=== PATIENT | male | born 1950 | race Caucasian/White ===

== ENCOUNTER → 2016-06-30 | Outpatient (REF) | payer MEDICARE ==
[~2016-06-30] MED LIST: ADVI200T PO; ALBU17IN INH; ALEV220T26 PO; CIPR500T19 PO; LEVO112T2 PO; MONT10TA2 PO; OXYC1TAB23 PO; SING10TA32 PO; TYLE325C PO
[2016-06-30 12:24] LABS: MEAN CORPUSCULAR HEMOGLOBIN 27.6 pg (27.0-33.0); MEAN CORPUSCULAR VOLUME 80.9 fl (80.0-96.0); RED CELL DISTRIBUTION WIDTH 12.5 % (11.5-14.5); WHITE BLOOD COUNT 5.8 K/mm3 (4.0-10.0)
[2016-06-30 12:32] LABS: ALBUMIN 3.9 GM/DL (3.2-5.2); ALBUMIN/GLOBULIN RATIO 1.39 (1.00-1.93); ALKALINE PHOSPHATASE 70 U/L (45-117); ALT/SGPT 31 U/L (12-78); ANION GAP 9 MEQ/L (8-16); AST/SGOT 17 U/L (15-37); BILIRUBIN,TOTAL 0.5 MG/DL (0.2-1.0); BLOOD UREA NITROGEN 20 MG/DL (7-18); CALCIUM LEVEL 8.7 MG/DL (8.8-10.2); CARBON DIOXIDE LEVEL 27 MEQ/L (21-32); CHLORIDE LEVEL 102 MEQ/L (98-107); CHOLESTEROL LEVEL 210 MG/DL (<200); GLOMERULAR FILTRATION RATE > 60.0 (>49); GLUCOSE, FASTING 90 MG/DL (80-110); POTASSIUM SERUM 4.1 MEQ/L (3.5-5.1); SODIUM LEVEL 138 MEQ/L (136-145); TOTAL PROTEIN 6.7 GM/DL (6.4-8.2); TRIGLYCERIDES LEVEL 96 MG/DL (<150)
== END ==
LOC: M SFHCPLAZ 09:24
PROVIDERS: ATTEND Internal Medicine
DX: E78.00 Pure hypercholesterolemia, unspecified (principal); E03.9 Hypothyroidism, unspecified

== ENCOUNTER → 2016-07-07 | Outpatient (CLI) | payer MEDICARE | LOC: M SMT 11:45 | PROVIDERS: ATTEND Urology | DX: C61 Malignant neoplasm of prostate (principal) ==

== ENCOUNTER → 2016-08-28 | Outpatient (CLI) | payer MEDICARE | LOC: M SMT 09:58 | PROVIDERS: ATTEND Urology | DX: C61 Malignant neoplasm of prostate (principal) ==

== ENCOUNTER → 2016-10-13 | Outpatient (CLI) | payer MEDICARE | LOC: M SMT 11:01 | PROVIDERS: ATTEND Urology | DX: C61 Malignant neoplasm of prostate (principal) ==

== ENCOUNTER → 2016-10-28 | Outpatient (CLI) | payer MEDICARE | LOC: M ONCR 09:09 | PROVIDERS: ATTEND Radiology Radiation Oncology | DX: C61 Malignant neoplasm of prostate (principal) ==

== ENCOUNTER 2016-10-30 10:29 | Outpatient (RCR) | payer MEDICARE ==
--- NOTE | 2016-10-30 11:01 | RADONC ---
RADIATION ONCOLOGY SIMULATION NOTE: DATE: 10/30/2016 CHART NUMBER: SIMULATION NOTE: Mr. Cunha was taken to the CT scan for CT simulation of his prostate bed field. CT was accomplished without difficulty or discomfort. Radiation treatment planning is underway and radiation treatments will begin subsequently. An immobilization device was created without difficulty or discomfort. It will be used throughout the course of treatment. I was physically present throughout the course of CT simulation.
== END 2016-11-07 ==
LOC: M ONCR 10:29
PROVIDERS: ATTEND Radiology Radiation Oncology
DX: C61 Malignant neoplasm of prostate (principal)

== ENCOUNTER → 2016-10-30 | Outpatient (CLI) | payer MEDICARE ==
[2016-10-30 11:28] LABS: MEAN CORPUSCULAR HEMOGLOBIN 28.8 pg (27.0-33.0); MEAN CORPUSCULAR HGB CONC 34.8 g/dl (32.0-36.5); MEAN CORPUSCULAR VOLUME 82.8 fl (80.0-96.0); RED CELL DISTRIBUTION WIDTH 12.9 % (11.5-14.5); WHITE BLOOD COUNT 6.9 K/mm3 (4.0-10.0)
== END ==
LOC: M RAD 10:21
PROVIDERS: ATTEND Radiology Radiation Oncology
DX: C61 Malignant neoplasm of prostate (principal)

== ENCOUNTER 2016-11-12 10:05 | Outpatient (RCR) | payer MEDICARE ==
--- NOTE | 2016-11-14 10:51 | RADONC ---
RADIATION ONCOLOGY PROGRESS NOTE DATE: 11/12/2016 CHART NUMBER: [id number]. Mr. Cunha underwent his first fraction of 180 centigrade today to his prostate bed. It was tolerated without difficulty or discomfort. REVIEW OF SYSTEMS: The patient's review of systems is noncontributory. Denies nausea, vomiting, fevers, chills, night sweats, diplopia, headaches, anxiety or depression, anorexia, weight loss, visual disturbances, chest pain, urinary or bowel difficulties, bone pain, or neurological problems. PHYSICAL EXAMINATION: The patient's skin clearly shows no evidence of radiation change present since this is his first fraction. The remainder of his physical exam remains unchanged as well. Mr. Cunha has tolerated his first fraction without difficulty and radiation will continue as scheduled.
--- NOTE | 2016-11-17 11:45 | RADONC ---
RADIATION ONCOLOGY PROGRESS NOTE DATE: 11/17/2016 CHART NUMBER: [id number] Mr. Cunha is presently at a dose of 720 cGy to his prostate bed and is tolerating treatments quite well at this point with no complaints related to his radiation therapy. He is having no urinary or bowel difficulties and no bone pain. The patient's review of systems noncontributory. He denies nausea, vomiting, fevers, chills, night sweats, diplopia, headaches, anxiety or depression, anorexia, weight loss, visual disturbances, chest pain, urinary or bowel difficulties, bone pain, or neurological problems. PHYSICAL EXAMINATION: The patient's skin is in good condition with no evidence of radiation change present. There is no moist or dry desquamation. The remainder of his physical exam remains unchanged. Mr. Cunha is tolerating treatments quite well and radiation will continue as scheduled.
--- NOTE | 2016-11-24 10:42 | RADONC ---
RADIATION ONCOLOGY DATE: 11/24/2016 CHART NUMBER: [id number] Mr. Cunha is presently at a dose of 1620 cGy to his prostate bed and is tolerating treatments quite well at this point with no complaints related to his radiation therapy. He is having no urinary or bowel difficulties and no bone pain. REVIEW OF SYSTEMS: The patient's review of systems is otherwise noncontributory. He denies nausea, vomiting, fevers, chills, night sweats, diplopia, headaches, anxiety or depression, anorexia, weight loss, visual disturbances, chest pain, urinary or bowel difficulties, bone pain or neurological problems. PHYSICAL EXAMINATION: The patient's skin is in good condition with no evidence of radiation change present. There is no moist or dry desquamation. The remainder of his physical exam remains unchanged. Mr. Cunha is tolerating treatments quite well and radiation will continue as scheduled.
--- NOTE | 2016-12-01 11:01 | RADONC ---
RADIATION ONCOLOGY PROGRESS NOTE DATE: 12/01/2016 CHART NUMBER: [id number] Mr. Cunha is presently a dose of 2520 cGy to his prostate bed and is tolerating treatments quite well at this point with no significant difficulties related to his radiation therapy other than some urinary frequency and urgency. REVIEW OF SYSTEMS: The patient's review of systems is positive for some urinary frequency but is otherwise noncontributory. He denies nausea, vomiting, fevers, chills, night sweats, diplopia, headaches, anxiety or depression, anorexia, weight loss, visual disturbances, chest pain, urinary or bowel difficulties, bone pain or neurological problems. PHYSICAL EXAMINATION: The patient's skin is in good condition with no evidence of radiation change present. There is no moist or dry desquamation. The remainder of his physical exam remains unchanged. Mr. Cunha is tolerating his treatments quite well and radiation will continue as scheduled.
--- NOTE | 2016-12-08 11:49 | RADONC ---
RADIATION ONCOLOGY PROGRESS NOTE DATE: 12/08/2016 CHART NUMBER: [id number] Mr. Cunha is presently at a dose of 3420 cGy to his prostate bed and is tolerating treatments quite well at this point with no complaints related to his radiation therapy. He has no urinary or bowel difficulties and no bone pain. The patient's review of systems is noncontributory. He denies nausea, vomiting, fevers, chills, night sweats, diplopia, headaches, anxiety or depression, anorexia, weight loss, visual disturbances, chest pain, urinary or bowel difficulties, bone pain, or neurological problems. PHYSICAL EXAMINATION: The patient's skin is in good condition with no evidence of radiation change present. There is no moist or dry desquamation. The remainder of his physical exam remains unchanged. Mr. Cunha is tolerating treatments quite well and radiation will continue as scheduled.
== END 2016-12-08 ==
LOC: M ONCR 10:05
PROVIDERS: ATTEND Radiology Radiation Oncology
DX: C61 Malignant neoplasm of prostate (principal)

== ENCOUNTER 2016-12-09 11:21 | Outpatient (RCR) | payer MEDICARE ==
--- NOTE | 2016-12-15 11:26 | RADONC ---
RADIATION ONCOLOGY PROGRESS NOTE DATE: 12/15/2016 CHART NUMBER: [id number] Mr. Cunha is presently at a dose of 4320 cGy to his prostate bed and is tolerating treatments quite well at this point with no complaints related to his radiation therapy. He is having no significant urinary or bowel difficulties, and no bone pain. REVIEW OF SYSTEMS: The patient's review of systems is noncontributory. He denies nausea, vomiting, fevers, chills, night sweats, diplopia, headaches, anxiety or depression, anorexia, weight loss, visual disturbances, chest pain, urinary or bowel difficulties, bone pain or neurological problems. PHYSICAL EXAMINATION: The patient's skin is in good condition with no evidence of radiation change present. There is no moist or dry desquamation. The remainder of his physical exam remains unchanged. Mr. Cunha is tolerating treatments quite well and radiation will continue as scheduled.
--- NOTE | 2016-12-22 10:51 | RADONC ---
RADIATION ONCOLOGY PROGRESS NOTE DATE: 12/22/2016 CHART NUMBER: [id number] Mr. Cunha is presently at a dose of 5220 centigrade to his prostate and is tolerating treatments quite well at this point with no significant difficulties related to his radiation therapy. He reported that he had some fatigue on Thursday, but overall is feeling better today. He has no significant urinary or bowel difficulties. REVIEW OF SYSTEMS: The patient's review of systems is largely noncontributory. Denies nausea, vomiting, fevers, chills, night sweats, diplopia, headaches, anxiety or depression, anorexia, weight loss, visual disturbances, chest pain, urinary or bowel difficulties, bone pain, or neurological problems. PHYSICAL EXAMINATION: The patient's skin is in good condition with no evidence of moist or dry desquamation. The remainder of his physical exam remains unchanged. Mr. Cunha is tolerating treatments quite well and radiation will continue as scheduled.
--- NOTE | 2016-12-29 12:16 | RADONC ---
RADIATION ONCOLOGY PROGRESS NOTE: DATE: 12/29/2016 CHART NUMBER: [id number]. PROGRESS NOTE: Mr. Cunha is presently at a dose of 6120 cGy to his prostate and is tolerating treatments quite well at this point with no significant difficulties related to his radiation therapy. He has some tenderness of the skin in the irradiated field. REVIEW OF SYSTEMS: The patient's review of systems is positive for some skin tenderness along his upper buttocks but is otherwise noncontributory. Denies nausea, vomiting, fevers, chills, night sweats, diplopia, headaches, anxiety or depression, anorexia, weight loss, visual disturbances, chest pain, urinary or bowel difficulties, bone pain, or neurological problems. PHYSICAL EXAMINATION: The patient's skin overall is in good condition with no evidence of moist or dry desquamation. There is some erythema in the upper buttocks. The remainder of his physical exam remains unchanged. Mr. Cunha is tolerating treatments quite well and radiation will continue as scheduled. Edited: 12/29/2016 1217 [facility]
--- NOTE | 2017-01-02 19:26 | RADONC ---
RADIATION ONCOLOGY TREATMENT SUMMARY DATE: 01/01/2017 CHART NUMBER: [id number] DIAGNOSIS: Prostate cancer. STAGE: IIB, [id number] R-1 ECOG PERFORMANCE STATUS: 0 TREATMENT SUMMARY: Mr. Cunha is a very pleasant 66-year-old white male with the diagnosis of what appears to be a stage IIB, [id number] R-1, moderate to poorly differentiated Aida score 7 (3-4) adenocarcinoma of prostate who presented to us status post radical prostatectomy for consideration of postoperative radiation therapy in an attempt to increase the likelihood of achieving local control. We treated the patient to his prostate bed for a total dose of 6660 cGy delivered in 37 fractions of 180 cGy each over 50 elapsed days from 11/12/2016 through 01/01/2017. The patient's prostate bed was treated on a linear accelerator utilizing an 18 MV photon beam via a 3D conformal technique with anterior posterior left to right lateral umanzor. We initially treated a larger field 4500 cGy subsequently coned down to deliver the remaining 2120 cGy order to maintain the small bowel and other structures within their tolerance limits. Mr. Cunha tolerated his treatments quite well with no difficulties related to his radiation therapy. He was able to eat therapy as prescribed without interruption. The patient is scheduled see me again in 1 month for further followup. He will also continue to be followed by his other physicians as well. cc: MD José Luis Bowen MD
== END 2017-01-08 ==
LOC: M ONCR 11:21
PROVIDERS: ATTEND Radiology Radiation Oncology
DX: C61 Malignant neoplasm of prostate (principal)

== ENCOUNTER → 2017-01-07 | Outpatient (REF) | payer MEDICARE ==
[2017-01-07 13:43] LABS: MEAN CORPUSCULAR HEMOGLOBIN 28.7 pg (27.0-33.0); MEAN CORPUSCULAR HGB CONC 35.9 g/dl (32.0-36.5); MEAN CORPUSCULAR VOLUME 79.9 fl (80.0-96.0); RED CELL DISTRIBUTION WIDTH 13.5 % (11.5-14.5); WHITE BLOOD COUNT 4.5 K/mm3 (4.0-10.0)
[2017-01-07 14:18] LABS: ALBUMIN 3.7 GM/DL (3.2-5.2); ALBUMIN/GLOBULIN RATIO 1.32 (1.00-1.93); ALKALINE PHOSPHATASE 61 U/L (45-117); ALT/SGPT 49 U/L (12-78); ANION GAP 9 MEQ/L (8-16); AST/SGOT 26 U/L (15-37); BILIRUBIN,TOTAL 0.6 MG/DL (0.2-1.0); BLOOD UREA NITROGEN 23 MG/DL (7-18); CARBON DIOXIDE LEVEL 27 MEQ/L (21-32); CHLORIDE LEVEL 104 MEQ/L (98-107); CHOLESTEROL LEVEL 220 MG/DL (<200); CREATININE FOR GFR 0.78 MG/DL (0.70-1.30); GLOMERULAR FILTRATION RATE > 60.0 (>49); GLUCOSE, FASTING 88 MG/DL (80-110); POTASSIUM SERUM 3.9 MEQ/L (3.5-5.1); SODIUM LEVEL 140 MEQ/L (136-145); TOTAL PROTEIN 6.5 GM/DL (6.4-8.2); TRIGLYCERIDES LEVEL 76 MG/DL (<150)
== END ==
LOC: M SFHCPLAZ 10:17
PROVIDERS: ATTEND Internal Medicine
DX: C61 Malignant neoplasm of prostate (principal); E78.00 Pure hypercholesterolemia, unspecified

== ENCOUNTER → 2017-01-13 | Outpatient (CLI) | payer MEDICARE | LOC: M SMT 10:00 | PROVIDERS: ATTEND Urology | DX: C61 Malignant neoplasm of prostate (principal) ==

== ENCOUNTER → 2017-01-28 | Outpatient (CLI) | payer MEDICARE ==
--- NOTE | 2017-01-29 08:02 | RADONC ---
RADIATION ONCOLOGY FOLLOWUP NOTE DATE: 01/28/2017 CHART NUMBER: [id number] DIAGNOSIS: Prostate cancer STAGE: II B, [id number]. ECOG PERFORMANCE STATUS: 0. FOLLOWUP NOTE: Mr. Cunha is a very pleasant 66-year-old white male with the diagnosis of a stage II B, [id number], moderate to poorly differentiated [place] score 7 (3-4) adenocarcinoma of the prostate who is presenting to us today for routine followup visit 1 month post completion of external beam radiation therapy. The patient presents today reporting that generally he is doing quite well with no complaints at this time related to his radiation therapy. He does report that he has a rash on the left buttock cheek which is somewhat painful and itchy. He has no urinary or bowel difficulties. No bone pain. REVIEW OF SYSTEMS: The patient's review of systems is positive for his uncomfortable left buttocks cheek rash, but is otherwise noncontributory. Denies nausea, vomiting, fevers, chills, night sweats, diplopia, headaches, anxiety or depression, anorexia, weight loss, visual disturbances, chest pain, urinary or bowel difficulties, bone pain, or neurological problems. PHYSICAL EXAMINATION: The patient is a well-developed, well-nourished male in no acute distress. HEENT exam is normocephalic, atraumatic. Extraocular movements are intact. There is no palpable cervical, supraclavicular, infraclavicular, axillary, or inguinal lymphadenopathy present. Lungs are clear to auscultation and percussion. Heart has a regular rate and rhythm. Abdomen is benign with no hepatosplenomegaly, masses, or tenderness. Rectal examination reveals a normal anal sphincter tone. His prostate is smooth with no evidence of nodularity. Skeletal examination reveals no tenderness to pressure or percussion of the bony skeleton. Extremities reveal no clubbing, cyanosis, or edema. Neurologic exam is grossly intact, as is the remainder of the physical examination. The skin over the patient's right buttocks cheek shows a red rash with excoriations. ASSESSMENT The patient is clinically QUINTON at this time. I am concerned that the rash over the patient's buttock is following a dermatome and is consistent with what appears to be shingles. He reports that he has had this for some time now and therefore I have not prescribed anything for him. I have scheduled him to see me again in 1 month for further followup. He will also continue to be followed by his other physicians as well. He was seen by a physician who told him this most likely was secondary to his radiation. However, to be clear, it is not following the pattern of the treatment umanzor. It is one-sided where the field was bilateral. It is also not in the area of the high dose range. It is not consistent with radiation dermatitis at all. cc: MD José Luis Bowen MD MTDD
== END ==
LOC: M ONCR 11:34
PROVIDERS: ATTEND Radiology Radiation Oncology
DX: C61 Malignant neoplasm of prostate (principal)

== ENCOUNTER → 2017-03-02 | Outpatient (CLI) | payer MEDICARE ==
--- NOTE | 2017-03-02 12:35 | REP ---
CHEST X-RAY: Two views. HISTORY: Chronic respiratory condition due to chemical, gases, fumes, and papers. Follow-up chest x-ray. Comparison study March 06, 2016. FINDINGS: Bilateral calcific pleural plaquing is again noted. This is unchanged. The lungs are otherwise well inflated. Pleural angles are sharp. Heart is not enlarged. Pulmonary vasculature is not increased. IMPRESSION: Calcific pleural plaquing changes. Otherwise no acute disease. Signed by Eliseo Lara MD 03/02/2017 01:00 P
== END ==
LOC: M SMT 10:40
PROVIDERS: ATTEND Internal Medicine Pulmonary Disease
DX: J68.4 Chronic respiratory conditions due to chemicals, gases, fumes and vapors (principal)

== ENCOUNTER → 2017-03-26 | Outpatient (CLI) | payer MEDICARE ==
--- NOTE | 2017-03-27 07:12 | RADONC ---
RADIATION ONCOLOGY FOLLOWUP NOTE DATE: 03/26/2017 CHART NUMBER: [id number] DIAGNOSIS: Prostate cancer. STAGE: II B, [id number]. ECOG PERFORMANCE STATUS: 0. FOLLOWUP NOTE: Mr. Cunha is a very pleasant 67-year-old white male with the diagnosis of a stage II B, L6gD1W7, R-1, moderate to poorly differentiated [place] score 7 (3-4) adenocarcinoma of the prostate who is returning to me for followup visit. He had a rash over his buttocks and was questioning whether or not this was shingles. The patient is reporting that it is totally resolved. He now has no complaints at all related to his radiation therapy or disease. He has no skin issues. REVIEW OF SYSTEMS: The patient's review of systems is noncontributory. Denies nausea, vomiting, fevers, chills, night sweats, diplopia, headaches, anxiety or depression, anorexia, weight loss, visual disturbances, chest pain, urinary or bowel difficulties, bone pain, or neurological problems. PHYSICAL EXAMINATION: The patient's skin is now in good condition with no evidence of radiation change present. The remainder of his physical exam remains unchanged. ASSESSMENT: The patient is clinically QUINTON at this time and will be seen by us again in 6 months for further followup. He will also continue to be followed by his other physicians as well. cc: MD José Luis Bowen MD
== END ==
LOC: M ONCR 09:06
PROVIDERS: ATTEND Radiology Radiation Oncology
DX: C61 Malignant neoplasm of prostate (principal)

== ENCOUNTER → 2017-04-16 | Outpatient (CLI) | payer MEDICARE | LOC: M SMT 11:18 | PROVIDERS: ATTEND Urology | DX: C61 Malignant neoplasm of prostate (principal) ==

== ENCOUNTER 2017-05-25 09:03 | Day surgery (SDC) | payer MEDICARE ==
[2017-05-25] MEDS: NS 1,000 ML IV (09:15)
[2017-05-25] MEDS ORDERED: LIDOCAINE 2% INJ 100 MG/5 ML SDV (FOR ANES.) As Ordered (11:07)
[2017-05-25] MEDS ORDERED: PROPOFOL 200 MG/20 ML VIAL As Ordered ×3 (11:07)
== END 2017-05-25 12:10 | disposition home or self-care (01) ==
LOC: M OPP 09:03
DX: Z12.11 Encounter for screening for malignant neoplasm of colon (principal); Z86.010 Personal history of colon polyps; K64.0 First degree hemorrhoids; K62.7 Radiation proctitis; R12 Heartburn; K22.8 Other specified diseases of esophagus; K44.9 Diaphragmatic hernia without obstruction or gangrene; E78.5 Hyperlipidemia, unspecified; E03.9 Hypothyroidism, unspecified; J62.0 Pneumoconiosis due to talc dust; M19.90 Unspecified osteoarthritis, unspecified site; Z85.46 Personal history of malignant neoplasm of prostate; Z92.3 Personal history of irradiation; M51.9 Unspecified thoracic, thoracolumbar and lumbosacral intervertebral disc disorder; N40.1 Benign prostatic hyperplasia with lower urinary tract symptoms; Z88.8 Allergy status to other drugs, medicaments and biological substances; Z88.1 Allergy status to other antibiotic agents; Z88.0 Allergy status to penicillin; Z91.02 Food additives allergy status; Z91.011 Allergy to milk products; Z79.899 Other long term (current) drug therapy; Z80.49 Family history of malignant neoplasm of other genital organs
CPT/HCPCS: G0105

== ENCOUNTER → 2017-07-14 | Outpatient (REF) | payer MEDICARE ==
[2017-07-14 11:09] LABS: HEMATOCRIT 39.9 % (42.0-52.0); HEMOGLOBIN 13.6 g/dl (14.0-18.0); MEAN CORPUSCULAR HEMOGLOBIN 28.1 pg (27.0-33.0); MEAN CORPUSCULAR HGB CONC 34.1 g/dl (32.0-36.5); MEAN CORPUSCULAR VOLUME 82.4 fl (80.0-96.0); PLATELET COUNT, AUTOMATED 221 10^3/uL (150-450); RED BLOOD COUNT 4.84 10^6/uL (4.30-6.10); RED CELL DISTRIBUTION WIDTH 12.8 % (11.5-14.5); WHITE BLOOD COUNT 6.9 10^3/uL (4.0-10.0)
[2017-07-14 11:36] LABS: ALBUMIN 4.1 GM/DL (3.2-5.2); ALBUMIN/GLOBULIN RATIO 1.52 (1.00-1.93); ALKALINE PHOSPHATASE 67 U/L (45-117); ALT/SGPT 54 U/L (12-78); ANION GAP 8 MEQ/L (8-16); AST/SGOT 31 U/L (7-37); BILIRUBIN,TOTAL 0.4 MG/DL (0.2-1.0); BLOOD UREA NITROGEN 23 MG/DL (7-18); CALCIUM LEVEL 9.2 MG/DL (8.8-10.2); CARBON DIOXIDE LEVEL 28 MEQ/L (21-32); CHLORIDE LEVEL 102 MEQ/L (98-107); CHOLESTEROL LEVEL 225 MG/DL (<200); CHOLESTEROL RISK RATIO 3.358 (<5); CREATININE FOR GFR 0.85 MG/DL (0.70-1.30); GLOMERULAR FILTRATION RATE > 60.0 (>49); GLUCOSE, FASTING 101 MG/DL (70-100); HDL CHOLESTEROL 67 MG/DL (>40); LDL CHOLESTEROL 135.6 MG/DL (<100); NON-HDL-C 158 MG/DL; POTASSIUM SERUM 4.3 MEQ/L (3.5-5.1); PROSTATIC SPECIFIC AG MONITOR < 0.01 NG/ML (< 4.0); SODIUM LEVEL 138 MEQ/L (136-145); THYROID STIMULATING HORMONE 0.132 uIU/ML (0.358-3.740); TOTAL PROTEIN 6.8 GM/DL (6.4-8.2); TRIGLYCERIDES LEVEL 112 MG/DL (<150)
== END ==
LOC: M SFHCPLAZ 08:54
DX: C61 Malignant neoplasm of prostate (principal); E78.00 Pure hypercholesterolemia, unspecified; E03.9 Hypothyroidism, unspecified
CPT/HCPCS: 84443

== ENCOUNTER → 2017-10-21 | Outpatient (CLI) | payer MEDICARE ==
[2017-10-21 19:28] LABS: PROSTATIC SPECIFIC AG MONITOR < 0.01 NG/ML (< 4.0)
== END ==
LOC: M SMT 13:23
DX: C61 Malignant neoplasm of prostate (principal)
CPT/HCPCS: 84153

== ENCOUNTER → 2018-03-17 | Outpatient (CLI) | payer MEDICARE | LOC: M SMT 09:45 | DX: J68.4 Chronic respiratory conditions due to chemicals, gases, fumes and vapors (principal) | CPT/HCPCS: 71046 ==

== ENCOUNTER → 2018-03-25 | Outpatient (REF) | payer OTHER, MEDICARE ==
[2018-03-25 18:01] LABS: CREATININE FOR GFR 1.02 MG/DL (0.70-1.30); GLOMERULAR FILTRATION RATE > 60.0 (>49)
[2018-03-25 18:01] LABS: BLOOD UREA NITROGEN 17 MG/DL (7-18)
== END ==
LOC: M LABDRAW1 15:46
DX: M51.36 Other intervertebral disc degeneration, lumbar region (principal)

== ENCOUNTER → 2018-03-25 | Outpatient (REF) | payer MEDICARE ==
[2018-03-25 14:27] LABS: BLOOD UREA NITROGEN 17 MG/DL (7-18)
[2018-03-25 14:27] LABS: CREATININE FOR GFR 1.02 MG/DL (0.70-1.30); GLOMERULAR FILTRATION RATE > 60.0 (>49)
== END ==
LOC: M LAB REF 13:20
DX: J68.4 Chronic respiratory conditions due to chemicals, gases, fumes and vapors (principal)
CPT/HCPCS: 82565

== ENCOUNTER → 2018-04-22 | Outpatient (CLI) | payer MEDICARE ==
[~2018-04-22] MED LIST changes: +ASPI81TA85 PO
== END ==
LOC: M SMT 10:20
PROVIDERS: ATTEND Urology
DX: C61 Malignant neoplasm of prostate (principal); R97.20 Elevated prostate specific antigen [PSA]

== ENCOUNTER → 2018-05-17 | Outpatient (CLI) | payer OTHER ==
--- NOTE | 2018-05-18 02:49 | REP ---
Clinical: Chronic disease due to in relation. Technique: PA and lateral. Comparison: 03/17/2018. Findings: Increased interstitial markings and very subtle primarily right sided opacities are suspected which may reflect chronic change as well as superimposed acute air space disease. Partially calcified pleural plaques noted. No effusion. No pneumothorax. Skeletal structures intact. Impression: Chronic pleuroparenchymal disease suggested. Subtle superimposed opacities cannot be excluded. Consider chest CT for further investigation. Electronically Signed by Delvis Nieves MD 05/18/2018 02:40 A
== END ==
LOC: M SMT 13:59
PROVIDERS: ATTEND Internal Medicine Pulmonary Disease
DX: J68.4 Chronic respiratory conditions due to chemicals, gases, fumes and vapors (principal)

== ENCOUNTER → 2018-11-10 | Outpatient (REF) | payer MEDICARE ==
[2018-11-10 13:28] LABS: HEMATOCRIT 45.2 % (42.0-52.0); MEAN CORPUSCULAR HEMOGLOBIN 28.5 pg (27.0-33.0); MEAN CORPUSCULAR HGB CONC 33.2 g/dl (32.0-36.5); MEAN CORPUSCULAR VOLUME 85.9 fl (80.0-96.0); PLATELET COUNT, AUTOMATED 207 10^3/uL (150-450); RED BLOOD COUNT 5.26 10^6/uL (4.30-6.10); WHITE BLOOD COUNT 6.4 10^3/uL (4.0-10.0)
[2018-11-10 13:31] LABS: ALT/SGPT 26 U/L (12-78); BILIRUBIN,TOTAL 0.6 MG/DL (0.2-1.0); BLOOD UREA NITROGEN 20 MG/DL (7-18); CALCIUM LEVEL 9.3 MG/DL (8.8-10.2); CARBON DIOXIDE LEVEL 29 MEQ/L (21-32); CHLORIDE LEVEL 103 MEQ/L (98-107); GLOMERULAR FILTRATION RATE > 60.0 (>49); GLUCOSE, FASTING 93 MG/DL (70-100); POTASSIUM SERUM 4.6 MEQ/L (3.5-5.1); SODIUM LEVEL 138 MEQ/L (136-145)
== END ==
LOC: M SFHCPLAZ 08:47
PROVIDERS: ATTEND Internal Medicine
DX: Z85.46 Personal history of malignant neoplasm of prostate (principal)

== ENCOUNTER → 2019-03-23 | Outpatient (CLI) | payer MEDICARE ==
--- NOTE | 2019-03-23 15:47 | REP ---
Chest x-ray: Two views. History: Respiratory condition. Comparison study: May 17, 2018. Findings: There is calcific pleural plaquing most notably along the right diaphragm but also along the left diaphragm unchanged. Some calcific plaquing is suspected in the upper lung zones. Heart is not enlarged. Lung umanzor are otherwise clear. Pleural angles are sharp. No significant bony abnormality is appreciated. 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 Otherwise no acute disease. Electronically Signed by Eliseo Lara MD 03/23/2019 05:22 P
== END ==
LOC: M WUC 12:14
PROVIDERS: ATTEND Internal Medicine Pulmonary Disease
DX: J68.4 Chronic respiratory conditions due to chemicals, gases, fumes and vapors (principal); J92.0 Pleural plaque with presence of asbestos

== ENCOUNTER → 2019-04-22 | Outpatient (CLI) | payer MEDICARE ==
[2019-04-24 00:06] LABS: Lyme Disease IgG/IgM Antibodie <0.91 ISR (0.00-0.90); Lyme Disease IgM Ab Quantitati <0.80 index (0.00-0.79)
== END ==
LOC: M PLALAB 10:39
PROVIDERS: ATTEND Nurse Practitioner Adult Health
DX: S70.362A Insect bite (nonvenomous), left thigh, initial encounter (principal); W57.XXXA Bitten or stung by nonvenomous insect and other nonvenomous arthropods, initial encounter; Y92.9 Unspecified place or not applicable; Y93.9 Activity, unspecified; Y99.9 Unspecified external cause status

== ENCOUNTER → 2019-05-31 | Outpatient (REF) | payer MEDICARE ==
[~2019-05-31] MED LIST changes: -MONT10TA2 PO; +MONT10TA4 PO
[2019-05-31 10:38] LABS: HEMATOCRIT 45.5 % (42.0-52.0); HEMOGLOBIN 15.2 g/dl (13.5-17.5); MEAN CORPUSCULAR HEMOGLOBIN 27.8 pg (27.0-33.0); MEAN CORPUSCULAR HGB CONC 33.4 g/dl (32.0-36.5); MEAN CORPUSCULAR VOLUME 83.3 fl (80.0-96.0); PLATELET COUNT, AUTOMATED 222 10^3/uL (150-450); RED BLOOD COUNT 5.46 10^6/uL (4.30-6.10); WHITE BLOOD COUNT 7.1 10^3/uL (4.0-10.0)
[2019-05-31 11:53] LABS: ALBUMIN 3.9 GM/DL (3.2-5.2); ALT/SGPT 21 U/L (12-78); BILIRUBIN,TOTAL 0.5 MG/DL (0.2-1.0); BLOOD UREA NITROGEN 19 MG/DL (7-18); CALCIUM LEVEL 8.9 MG/DL (8.8-10.2); CARBON DIOXIDE LEVEL 28 MEQ/L (21-32); CHLORIDE LEVEL 103 MEQ/L (98-107); CHOLESTEROL LEVEL 261 MG/DL (<200); CREATININE FOR GFR 0.92 MG/DL (0.70-1.30); GLOMERULAR FILTRATION RATE > 60.0 (>49); GLUCOSE, FASTING 78 MG/DL (70-100); HDL CHOLESTEROL 50 MG/DL (>40); LDL CHOLESTEROL 180 MG/DL (<100); NON-HDL-C 211 MG/DL; POTASSIUM SERUM 4.3 MEQ/L (3.5-5.1); SODIUM LEVEL 137 MEQ/L (136-145); TOTAL PROTEIN 6.9 GM/DL (6.4-8.2); TRIGLYCERIDES LEVEL 157 MG/DL (<150)
== END ==
LOC: M SFHCPLAZ 08:53
PROVIDERS: ATTEND Internal Medicine
DX: E78.00 Pure hypercholesterolemia, unspecified (principal); E03.9 Hypothyroidism, unspecified; Z85.46 Personal history of malignant neoplasm of prostate
CPT/HCPCS: 36415; 80053; 80061; 84443; 85027; 93005; G0463

== ENCOUNTER 2019-07-04 09:23 | Day surgery (SDC) | payer MEDICARE ==
[~2019-07-04] VITALS: Ht 177.8 cm; Wt 93.4 kg
[~2019-07-04 09:23] MED LIST changes: +ACET1TAB55 PO; +ALEV220T22 PO; +MULTCAP PO; +NS 1,000 ML IV ONE; +PROAAER10 INH
[2019-07-04] MEDS ORDERED: propofoL 200 MG/20 ML VIAL As Ordered ONE (09:30)
[2019-07-04] MEDS ORDERED: LIDOCAINE 2% INJ 100 MG/5 ML SDV (FOR ANES.) As Ordered ONE (09:30)
--- NOTE | 2019-07-04 11:25 | ROOR ---
Patient Name: Naveed Turcios Procedure Date: 07/04/2019 10:55 AM Date of : 1950 Age: 69 Room: [facility] Gender: Male Note Status: Finalized Procedure: Total Colonoscopy to Cecum + Biopsy Polypectomy Indications: High risk colon cancer surveillance: Personal history of colonic polyps, Incidental - Rectal bleeding Providers: Rubio Fisher MD Referring MD: José Luis Ramirez MD Requesting Provider: Medicines: Monitored Anesthesia Care Complications: No immediate complications. Procedure: Pre-Anesthesia Assessment: - The heart rate, respiratory rate, oxygen saturations, blood pressure, adequacy of pulmonary ventilation, and response to care were monitored throughout the procedure. The Colonoscope was introduced through the anus and advanced to the cecum, identified by appendiceal orifice and ileocecal valve. The colonoscopy was performed without difficulty. The patient tolerated the procedure well. The quality of the bowel preparation was excellent. Findings: The perianal and digital rectal examinations were normal. Non-bleeding internal hemorrhoids were found during retroflexion. The hemorrhoids were small and Grade I (internal hemorrhoids that do not prolapse). The mucosa vascular pattern in the rectum was locally increased. Multiple small and large-mouthed diverticula were found in the recto-sigmoid colon, sigmoid colon and descending colon. A small polyp was found at 40 cm proximal to the anus. The polyp was sessile. The polyp was removed with a cold biopsy forceps. Resection and retrieval were complete. The exam was otherwise without abnormality on direct and retroflexion views. Impression: - Non-bleeding internal hemorrhoids. - Increased mucosa vascular pattern in the rectum. - Diverticulosis in the recto-sigmoid colon, in the sigmoid colon and in the descending colon. - One small polyp at 40 cm proximal to the anus, removed with a cold biopsy forceps. Resected and retrieved. - The examination was otherwise normal on direct and retroflexion views. - The exam was otherwise normal to the cecum. Recommendation: - Patient has a contact number available for emergencies. The signs and symptoms of potential delayed complications were discussed with the patient. Return to normal activities tomorrow. Written discharge instructions were provided to the patient. - High fiber diet. - Discharge patient to home. - Use Canasa 500 mg suppository 1 per rectum once a day. - Await pathology results. - Telephone GI clinic for pathology results in 1 week. - Repeat colonoscopy in 5 years for surveillance based on pathology results. - Return to referring physician. - The findings and recommendations were discussed with the patient's family. Rubio Fisher MD Rubio Fisher MD 07/04/2019 11:25:12 AM Electronically signed by Rubio Fisher MD Number of Addenda: 0 Note Initiated On: 07/04/2019 10:55 AM Estimated Blood Loss: Estimated blood loss: none.
[2019-07-04 11:55] VITALS: BP 133/85
== END 2019-07-04 12:07 | disposition home or self-care (01) ==
LOC: M OPP 09:23
PROVIDERS: ATTEND Internal Medicine Gastroenterology
DX: Z12.11 Encounter for screening for malignant neoplasm of colon (principal); Z86.010 Personal history of colon polyps; K64.0 First degree hemorrhoids; D12.6 Benign neoplasm of colon, unspecified; K57.30 Diverticulosis of large intestine without perforation or abscess without bleeding; Z79.899 Other long term (current) drug therapy; Z88.0 Allergy status to penicillin; Z88.8 Allergy status to other drugs, medicaments and biological substances; Z91.011 Allergy to milk products; Z91.048 Other nonmedicinal substance allergy status; Z92.3 Personal history of irradiation; Z85.46 Personal history of malignant neoplasm of prostate

== ENCOUNTER → 2019-10-19 | Outpatient (CLI) | payer MEDICARE ==
[~2019-10-19] MED LIST changes: -NS 1,000 ML IV ONE
== END ==
LOC: M PLALAB 11:03
PROVIDERS: ATTEND Urology
DX: C61 Malignant neoplasm of prostate (principal)

== ENCOUNTER → 2019-10-23 | Outpatient (CLI) | payer MEDICARE | LOC: M LABSMTC 10:16 | PROVIDERS: ATTEND Physician Assistant | DX: Z03.818 Encounter for observation for suspected exposure to other biological agents ruled out (principal); Z11.59 Encounter for screening for other viral diseases ==

== ENCOUNTER → 2019-12-14 | Outpatient (REF) | payer MEDICARE ==
[~2019-12-14] MED LIST changes: -ASPI81TA85 PO; +ASPI81TA86 PO
[2020-01-28 12:42] LABS: ALBUMIN 4.2 GM/DL (3.2-5.2); ALT/SGPT 28 U/L (12-78); BILIRUBIN,TOTAL 0.8 MG/DL (0.2-1.0); BLOOD UREA NITROGEN 19 MG/DL (7-18); CALCIUM LEVEL 9.4 MG/DL (8.8-10.2); CARBON DIOXIDE LEVEL 29 MEQ/L (21-32); CHLORIDE LEVEL 101 MEQ/L (98-107); CHOLESTEROL LEVEL 241 MG/DL (<200); CHOLESTEROL RISK RATIO 4.634 (<5); CREATININE FOR GFR 1.01 MG/DL (0.70-1.30); GLOMERULAR FILTRATION RATE > 60.0 (>49); GLUCOSE, FASTING 105 MG/DL (70-100); HDL CHOLESTEROL 52 MG/DL (>40); LDL CHOLESTEROL 171 MG/DL (<100); NON-HDL-C 189 MG/DL; POTASSIUM SERUM 4.5 MEQ/L (3.5-5.1); SODIUM LEVEL 135 MEQ/L (136-145); TRIGLYCERIDES LEVEL 92 MG/DL (<150)
[2020-01-31 13:28] LABS: Lyme Disease IgG/IgM Antibodie See Separate Report
== END ==
LOC: M SFHCPLAZ 08:44
PROVIDERS: ATTEND Internal Medicine
DX: E78.00 Pure hypercholesterolemia, unspecified (principal); W57.XXXA Bitten or stung by nonvenomous insect and other nonvenomous arthropods, initial encounter

== ENCOUNTER → 2020-01-18 | Outpatient (REF) | payer MEDICARE | LOC: M LAB REF 17:15 | PROVIDERS: ATTEND Internal Medicine Pulmonary Disease | DX: Z57.39 Occupational exposure to other air contaminants (principal) ==

== ENCOUNTER → 2020-04-18 | Outpatient (CLI) | payer OTHER, MEDICARE ==
[~2020-04-18] MED LIST changes: -MONT10TA4 PO; +MONT5TAB2 PO
--- NOTE | 2020-04-18 15:34 | REPPI ---
INDICATION: OCCUPATIONAL EXPOSURE TO OTHER AIR CONTAMINANTS.. COMPARISON: Comparison chest x-ray March 23, 2019. Comparison is made with prior CT study of the chest from September 18, 2011. TECHNIQUE: Two views.. FINDINGS: There is calcific pleural thickening on the diaphragms and a large area of pleural plaquing is seen projecting in the retrosternal clear space on the lateral radiograph. Multifocal smaller calcific plaques are seen on the frontal radiograph. These are felt to be unchanged. Heart is not enlarged. Pleural angles are sharp. Pulmonary vasculature is not increased. The thoracic aorta is slightly tortuous. 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 No acute abnormality seen.. <Electronically signed by Roger Lara > 04/18/20 [id number]
== END ==
LOC: M PLAIMG 10:46
PROVIDERS: ATTEND Internal Medicine Pulmonary Disease
DX: Z57.39 Occupational exposure to other air contaminants (principal)

== ENCOUNTER → 2020-04-18 | Outpatient (CLI) | payer MEDICARE, OTHER | LOC: M PLAIMG 10:40 | PROVIDERS: ATTEND Urology | DX: C61 Malignant neoplasm of prostate (principal) ==

== ENCOUNTER → 2020-06-11 | Outpatient (REF) | payer MEDICARE ==
[2020-06-11 14:03] LABS: BASO # 0.1 10^3/uL (0.0-0.2); EOS # 0.2 10^3/uL (0.0-0.5); EOS % 3.5 % (0.0-3.0); HEMATOCRIT 43.1 % (42.0-52.0); HEMOGLOBIN 14.4 g/dl (13.5-17.5); LYMPH # 0.8 10^3/uL (1.5-5.0); LYMPH % 13.5 % (24.0-44.0); MEAN CORPUSCULAR HEMOGLOBIN 27.9 pg (27.0-33.0); MEAN CORPUSCULAR HGB CONC 33.4 g/dl (32.0-36.5); MEAN CORPUSCULAR VOLUME 83.5 fl (80.0-96.0); MONO # 0.4 10^3/uL (0.0-0.8); MONO % 6.7 % (0.0-5.0); NEUTROPHILS # 4.7 10^3/uL (1.5-8.5); NEUTROPHILS % 74.7 % (36.0-66.0); PLATELET COUNT, AUTOMATED 216 10^3/uL (150-450); RED BLOOD COUNT 5.16 10^6/uL (4.30-6.10); WHITE BLOOD COUNT 6.2 10^3/uL (4.0-10.0)
[2020-06-11 14:35] LABS: ALBUMIN 4.2 GM/DL (3.2-5.2); ALT/SGPT 30 U/L (12-78); BILIRUBIN,TOTAL 0.7 MG/DL (0.2-1.0); BLOOD UREA NITROGEN 22 MG/DL (7-18); CALCIUM LEVEL 9.6 MG/DL (8.8-10.2); CARBON DIOXIDE LEVEL 30 MEQ/L (21-32); CHLORIDE LEVEL 102 MEQ/L (98-107); CHOLESTEROL LEVEL 246 MG/DL (<200); CHOLESTEROL RISK RATIO 4.555 (<5); CREATININE FOR GFR 0.99 MG/DL (0.70-1.30); GLOMERULAR FILTRATION RATE > 60.0 (>49); GLUCOSE, FASTING 91 MG/DL (70-100); HDL CHOLESTEROL 54 MG/DL (>40); LDL CHOLESTEROL 176 MG/DL (<100); NON-HDL-C 192 MG/DL; POTASSIUM SERUM 4.2 MEQ/L (3.5-5.1); SODIUM LEVEL 139 MEQ/L (136-145); TOTAL PROTEIN 6.7 GM/DL (6.4-8.2); TRIGLYCERIDES LEVEL 81 MG/DL (<150)
== END ==
LOC: M PLALAB 11:12
PROVIDERS: ATTEND Internal Medicine
DX: Z85.46 Personal history of malignant neoplasm of prostate (principal); E78.00 Pure hypercholesterolemia, unspecified; E03.9 Hypothyroidism, unspecified; Z11.59 Encounter for screening for other viral diseases
CPT/HCPCS: 36415; 80053; 80061; 84443; 85025; G0472

== ENCOUNTER → 2020-12-13 | Outpatient (CLI) | payer MEDICARE ==
[~2020-12-13] MED LIST changes: +MONT10TA10 PO; -MONT5TAB2 PO
[2020-12-13 11:39] LABS: ALBUMIN 3.8 GM/DL (3.2-5.2); ALT/SGPT 26 U/L (12-78); BILIRUBIN,TOTAL 0.6 MG/DL (0.2-1.0); BLOOD UREA NITROGEN 20 MG/DL (7-18); CALCIUM LEVEL 9.1 MG/DL (8.8-10.2); CARBON DIOXIDE LEVEL 28 MEQ/L (21-32); CHLORIDE LEVEL 104 MEQ/L (98-107); CHOLESTEROL LEVEL 230 MG/DL (<200); CHOLESTEROL RISK RATIO 4.423 (<5); GLOMERULAR FILTRATION RATE > 60.0 (>49); GLUCOSE, FASTING 103 MG/DL (70-100); HDL CHOLESTEROL 52 MG/DL (>40); LDL CHOLESTEROL 162 MG/DL (<100); NON-HDL-C 178 MG/DL; POTASSIUM SERUM 4.4 MEQ/L (3.5-5.1); SODIUM LEVEL 139 MEQ/L (136-145); TOTAL PROTEIN 6.6 GM/DL (6.4-8.2); TRIGLYCERIDES LEVEL 79 MG/DL (<150)
== END ==
LOC: M PLALAB 08:47
PROVIDERS: ATTEND Internal Medicine
DX: E78.00 Pure hypercholesterolemia, unspecified (principal)

== ENCOUNTER → 2021-02-20 | Outpatient (REF) | payer MEDICARE ==
[2021-02-20 14:10] LABS: APPEARANCE, URINE CLEAR (CLEAR); BACTERIA, URINE AUTO NEGATIVE (NEGATIVE); BILIRUBIN, URINE AUTO NEGATIVE (NEGATIVE); BLOOD, URINE BLOOD NEGATIVE (NEGATIVE); COLOR, URINE YELLOW (YELLOW); GLUCOSE, URINE (UA) AUTO NEGATIVE (NEGATIVE); KETONE, URINE AUTO NEGATIVE (NEGATIVE); LEUKOCYTE ESTERASE, URINE AUTO NEGATIVE (NEGATIVE); MUCUS, URINE SMALL (NEGATIVE); NITRITE, URINE AUTO NEGATIVE (NEGATIVE); PROTEIN, URINE AUTO NEGATIVE (NEGATIVE); RBC, URINE AUTO 1 /HPF (0-3); SPECIFIC GRAVITY URINE AUTO 1.011 (1.002-1.035); SQUAMOUS EPITHELIAL CELL UR AU 0 /HPF (0-6); UROBILINOGEN, URINE AUTO 0.2 mg/dL (0.0-2.0); WBC, URINE AUTO 0 /HPF (0-3)
== END ==
LOC: M SMT 12:59
PROVIDERS: ATTEND Urology
DX: R31.0 Gross hematuria (principal)

== ENCOUNTER → 2021-03-09 | Outpatient (CLI) | payer MEDICARE ==
[2021-03-09 11:21] LABS: BLOOD UREA NITROGEN 20 MG/DL (7-18); CALCIUM LEVEL 9.1 MG/DL (8.8-10.2); CARBON DIOXIDE LEVEL 28 MEQ/L (21-32); CHLORIDE LEVEL 103 MEQ/L (98-107); CREATININE FOR GFR 0.87 MG/DL (0.70-1.30); GLOMERULAR FILTRATION RATE > 60.0 (>49); GLUCOSE, FASTING 91 MG/DL (70-100); POTASSIUM SERUM 4.4 MEQ/L (3.5-5.1); SODIUM LEVEL 137 MEQ/L (136-145)
== END ==
LOC: M LAB 09:53
PROVIDERS: ATTEND Urology
DX: R31.0 Gross hematuria (principal)

== ENCOUNTER → 2021-03-11 | Outpatient (CLI) | payer MEDICARE ==
[~2021-03-11] MED LIST changes: +ISOVUE-370 76% 100ML VIAL ONE
--- NOTE | 2021-03-11 12:55 | REP ---
INDICATION: GROSS HEMATURIA. COMPARISON: 03/10/2016. TECHNIQUE: CT abdomen and pelvis performed without IV contrast. CT abdomen pelvis performed with IV contrast as well, following intravenous administration of 100 cc of Isovue 370. Sagittal, coronal and 3D MIP reconstruction images are performed. FINDINGS: Lung bases: Study again shows bilateral calcified pleural plaques right much greater than left but essentially unchanged. There is no pleural effusion or other acute finding in the lung bases. The heart is not enlarged and there is no pericardial thickening or effusion. No hiatal hernia. Liver: There are scattered cysts in the liver unchanged from the previous study. No gross hepatomegaly, solid hepatic mass or adjacent ascites. Gallbladder: No calcified stone or mass. Spleen: Upper limits normal size with length of 13.1 cm. No discrete mass. Adrenals: No mass or focal nodule. Pancreas: Normal. Kidneys: Both kidneys symmetric in size. There is no stone, solid or cystic mass nor hydronephrosis. No perinephric or periureteral edema. No ureteral stone or dilatation. CT urogram images show no filling defects or masses in the collecting systems or ureters along their course to the bladder. Small and large bowel: Few scattered diverticula in the distal left colon and sigmoid without signs of colitis or diverticulitis. The left inguinal canal is slightly distended with omental fat but no bowel herniation. Free fluid: None. Adenopathy: Some right inguinal adenopathy with nodes up to 12 mm in size left inguinal nodes sub cm. No pelvic or abdominal pathologic sized adenopathy. Aorta: Atherosclerotic plaque in the abdominal aorta distally and tortuosity and ectasia of both common iliac arteries and external iliac arteries without gross aneurysm or dissection. Appendix: Not inflamed. Osseous structures: Lumbar spondylosis with disc space narrowing throughout the, least at L5-S1 and with large marginal osteophytes anteriorly and laterally. Facet arthropathy. No acute compression deformity or destructive lesion in the lumbar or thoracic spine, visualized ribs, pelvis, sacrum or hips. Pelvis: Bladder is under filled, wall thickening therefore is nonspecific but it is slightly asymmetric. No mass effect on the bladder base in the prostate bed. No other significant findings. IMPRESSION: 1. Bladder under filled but with wall thickening slightly asymmetric and irregular which could be chronic cystitis, post radiation change, the effect of underfilling or other. No discrete mass identified. 2. Kidneys collecting systems and ureter on CT and urogram images were grossly intact. 3. Calcified diaphragmatic and pleural plaques in the lung bases unchanged and consistent with prior asbestos exposure. 4. Small hepatic cysts and upper limits normal spleen, stable. 5. Ectasia of the common and external iliac arteries without aneurysm. Atherosclerotic calcifications throughout the aorta and branches. No aortic aneurysm. 6. Lumbar spondylosis with degenerative changes in the pelvis and hips but no discrete or focal bone lesion. <Electronically signed by Thuan Turner > 03/11/21 [id number]
== END ==
LOC: M PLAIMG 10:07
PROVIDERS: ATTEND Urology
DX: R31.0 Gross hematuria (principal); K76.89 Other specified diseases of liver; K57.30 Diverticulosis of large intestine without perforation or abscess without bleeding; R59.0 Localized enlarged lymph nodes; I70.0 Atherosclerosis of aorta; M47.816 Spondylosis without myelopathy or radiculopathy, lumbar region
CPT/HCPCS: 74178; Q9967

== ENCOUNTER → 2021-05-22 | Outpatient (CLI) | payer MEDICARE ==
[~2021-05-22] MED LIST changes: -ISOVUE-370 76% 100ML VIAL ONE; -MONT10TA10 PO; +MONT10TA97 PO
== END ==
LOC: M PLALAB 10:05
PROVIDERS: ATTEND Urology
DX: C61 Malignant neoplasm of prostate (principal)

== ENCOUNTER → 2021-06-17 | Outpatient (CLI) | payer MEDICARE ==
[2021-06-17 13:43] LABS: BASO % 0.6 % (0.0-1.0); EOS # 0.2 10^3/uL (0.0-0.5); EOS % 3.5 % (0.0-3.0); HEMATOCRIT 42.6 % (42.0-52.0); HEMOGLOBIN 14.2 g/dl (13.5-17.5); LYMPH # 0.8 10^3/uL (1.5-5.0); LYMPH % 11.2 % (24.0-44.0); MEAN CORPUSCULAR HEMOGLOBIN 27.3 pg (27.0-33.0); MEAN CORPUSCULAR HGB CONC 33.3 g/dl (32.0-36.5); MEAN CORPUSCULAR VOLUME 81.9 fl (80.0-96.0); MONO # 0.4 10^3/uL (0.0-0.8); NEUTROPHILS # 5.3 10^3/uL (1.5-8.5); NEUTROPHILS % 78.1 % (36.0-66.0); PLATELET COUNT, AUTOMATED 235 10^3/uL (150-450); WHITE BLOOD COUNT 6.8 10^3/uL (4.0-10.0)
[2021-06-17 14:27] LABS: ALBUMIN 3.7 GM/DL (3.2-5.2); ALT/SGPT 24 U/L (12-78); BILIRUBIN,TOTAL 0.3 MG/DL (0.2-1.0); BLOOD UREA NITROGEN 17 MG/DL (7-18); CALCIUM LEVEL 8.8 MG/DL (8.8-10.2); CARBON DIOXIDE LEVEL 26 MEQ/L (21-32); CHLORIDE LEVEL 103 MEQ/L (98-107); CHOLESTEROL LEVEL 204 MG/DL (<200); CHOLESTEROL RISK RATIO 4.434 (<5); CREATININE FOR GFR 0.95 MG/DL (0.70-1.30); GLOMERULAR FILTRATION RATE > 60.0 (>42); GLUCOSE, FASTING 109 MG/DL (70-100); HDL CHOLESTEROL 46 MG/DL (>40); LDL CHOLESTEROL 133 MG/DL (<100); NON-HDL-C 158 MG/DL; POTASSIUM SERUM 4.1 MEQ/L (3.5-5.1); SODIUM LEVEL 135 MEQ/L (136-145); TOTAL PROTEIN 6.7 GM/DL (6.4-8.2); TRIGLYCERIDES LEVEL 127 MG/DL (<150)
== END ==
LOC: M PLALAB 10:18
PROVIDERS: ATTEND Internal Medicine
DX: E03.9 Hypothyroidism, unspecified (principal); E78.00 Pure hypercholesterolemia, unspecified; Z85.46 Personal history of malignant neoplasm of prostate

== ENCOUNTER → 2021-06-17 | Outpatient (CLI) | payer MEDICARE | LOC: M PLAIMG 10:21 | PROVIDERS: ATTEND Internal Medicine Pulmonary Disease | DX: J84.9 Interstitial pulmonary disease, unspecified (principal); J92.0 Pleural plaque with presence of asbestos; Z57.39 Occupational exposure to other air contaminants ==

== ENCOUNTER → 2021-06-24 | Outpatient (REF) | payer MEDICARE | LOC: M SFHCPLAZ 17:05 | PROVIDERS: ATTEND Physician Assistant | DX: R09.81 Nasal congestion (principal) ==

== ENCOUNTER → 2021-10-24 | Outpatient (CLI) | payer MEDICARE | LOC: M PLALAB 13:39 | PROVIDERS: ATTEND Urology | DX: C61 Malignant neoplasm of prostate (principal) ==

== ENCOUNTER → 2022-03-20 | Outpatient (CLI) | payer MEDICARE | LOC: M PLALAB 08:33 | PROVIDERS: ATTEND Urology | DX: C61 Malignant neoplasm of prostate (principal) ==

== ENCOUNTER → 2022-07-23 | Outpatient (CLI) | payer OTHER, MEDICARE ==
[~2022-07-23] MED LIST changes: +MONT-5 PO; -SING10TA32 PO
== END ==
LOC: M PLAIMG 08:04
PROVIDERS: ATTEND Internal Medicine Pulmonary Disease
DX: Z57.39 Occupational exposure to other air contaminants (principal); J92.9 Pleural plaque without asbestos

== ENCOUNTER → 2022-09-17 | Outpatient (CLI) | payer MEDICARE | LOC: M PLALAB 09:25 | PROVIDERS: ATTEND Urology | DX: C61 Malignant neoplasm of prostate (principal) ==

== ENCOUNTER → 2023-03-20 | Outpatient (REF) | payer MEDICARE | LOC: M PLALAB 09:55 | PROVIDERS: ATTEND Urology | DX: C61 Malignant neoplasm of prostate (principal) ==

== ENCOUNTER → 2023-04-21 | Outpatient (REF) | payer MEDICARE | LOC: M LAB REF 15:19 | PROVIDERS: ATTEND Internal Medicine Pulmonary Disease | DX: J62.0 Pneumoconiosis due to talc dust (principal) ==

== ENCOUNTER 2023-05-27 09:18 | Day surgery (SDC) | payer MEDICARE ==
[~2023-05-27] VITALS: Ht 177.8 cm; Wt 91.4 kg
[~2023-05-27 09:18] MED LIST changes: +CALC600C3 PO; +CALC600T61 PO; +D3 S1CAP3 PO; +K 10100T PO; +NS 1,000 ML IV ONE; +OMEP10CASR PO; +RA M500C PO; +THERTAB52 PO; +VENTAER; +VITA100091 PO; +[UNRECOGNIZED DRUG - CODE] SL
[2023-05-27] MEDS ORDERED: fentaNYL 100 MCG/2 ML INJECTION As Ordered ONE (10:37)
[2023-05-27] MEDS ORDERED: ALBUTEROL 6.7GM INHALER **FOR ANES. CART/OMNICELL ONLY As Ordered ONE (11:02)
[2023-05-27] MEDS ORDERED: propofoL 200 MG/20 ML VIAL As Ordered ONE (11:26)
[2023-05-27 12:00] VITALS: BP 144/67; O2SAT 95
== END 2023-05-27 12:20 | disposition home or self-care (01) ==
LOC: M OPP 09:18
PROVIDERS: ATTEND Internal Medicine Gastroenterology
DX: Z12.11 Encounter for screening for malignant neoplasm of colon (principal); Z86.010 Personal history of colon polyps; K63.5 Polyp of colon; K64.0 First degree hemorrhoids; K21.00 Gastro-esophageal reflux disease with esophagitis, without bleeding; K44.9 Diaphragmatic hernia without obstruction or gangrene; R12 Heartburn; Z79.1 Long term (current) use of non-steroidal anti-inflammatories (NSAID); Z79.51 Long term (current) use of inhaled steroids; Z79.890 Hormone replacement therapy; Z79.899 Other long term (current) drug therapy; Z88.0 Allergy status to penicillin; Z88.1 Allergy status to other antibiotic agents; Z88.8 Allergy status to other drugs, medicaments and biological substances; Z91.011 Allergy to milk products; Z91.048 Other nonmedicinal substance allergy status
CPT/HCPCS: 43239; 45380; 88305; J3010

== ENCOUNTER → 2023-06-17 | Outpatient (REF) | payer MEDICARE ==
[~2023-06-17] MED LIST changes: -NS 1,000 ML IV ONE
[2023-06-17 18:23] LABS: PERCENT SATURATION 35.8 % (19.7-50.0)
[2023-06-17 18:25] LABS: FERRITIN 119.5 NG/ML (10.5-307.3)
== END ==
LOC: M LAB REF 17:28
PROVIDERS: ATTEND Internal Medicine
DX: D64.9 Anemia, unspecified (principal)

== ENCOUNTER → 2023-08-25 | Outpatient (CLI) | payer MEDICARE ==
[2023-08-25 17:54] LABS: BASO # 0.1 10^3/uL (0.0-0.2); EOS # 0.3 10^3/uL (0.0-0.5); EOS % 4.1 % (0.0-3.0); HEMATOCRIT 44.2 % (42.0-52.0); HEMOGLOBIN 14.8 g/dl (13.5-17.5); LYMPH # 0.9 10^3/uL (1.5-5.0); MEAN CORPUSCULAR HEMOGLOBIN 28.1 pg (27.0-33.0); MEAN CORPUSCULAR HGB CONC 33.5 g/dl (32.0-36.5); MEAN CORPUSCULAR VOLUME 83.9 fl (80.0-96.0); MONO # 0.5 10^3/uL (0.0-0.8); MONO % 7.2 % (2.0-8.0); NEUTROPHILS # 5.3 10^3/uL (1.5-8.5); NEUTROPHILS % 74.4 % (36.0-66.0); PLATELET COUNT, AUTOMATED 235 10^3/uL (150-450); RED BLOOD COUNT 5.27 10^6/uL (4.30-6.10); WHITE BLOOD COUNT 7.1 10^3/uL (4.0-10.0)
[2023-08-25 18:07] LABS: ALBUMIN 3.6 G/DL (3.2-5.2); BLOOD UREA NITROGEN 18 MG/DL (9-23); CALCIUM LEVEL 9.4 MG/DL (8.3-10.6); CARBON DIOXIDE LEVEL 30 MMOL/L (20-31); CHLORIDE LEVEL 104 MMOL/L (98-107); CREATININE FOR GFR 1.01 MG/DL (0.70-1.30); GLOMERULAR FILTRATION RATE > 60.0 (>42); GLUCOSE, FASTING 85 MG/DL (74-106); PHOSPHORUS LEVEL 3.8 MG/DL (2.4-5.1); POTASSIUM SERUM 4.9 MMOL/L (3.5-5.1); SODIUM LEVEL 139 MMOL/L (136-145)
[2023-08-25 18:09] LABS: COMPLEMENT C3 97.1 MG/DL (90.0-170.0)
[2023-08-25 18:10] LABS: COMPLEMENT C4 26.7 MG/DL (12-36)
== END ==
LOC: M PLALAB 11:29
PROVIDERS: ATTEND Nurse Practitioner Family
DX: L30.8 Other specified dermatitis (principal); Z79.899 Other long term (current) drug therapy

== ENCOUNTER → 2023-10-07 | Outpatient (CLI) | payer MEDICARE | LOC: M PLALAB 09:59 | PROVIDERS: ATTEND Urology | DX: C61 Malignant neoplasm of prostate (principal) ==

== ENCOUNTER → 2023-10-21 | Outpatient (CLI) | payer OTHER, MEDICARE | LOC: M PLAIMG 09:49 | PROVIDERS: ATTEND Internal Medicine Pulmonary Disease | DX: J62.0 Pneumoconiosis due to talc dust (principal); J84.9 Interstitial pulmonary disease, unspecified; J92.9 Pleural plaque without asbestos ==

== ENCOUNTER → 2024-03-24 | Outpatient (CLI) | payer MEDICARE | LOC: M PLALAB 10:06 | PROVIDERS: ATTEND Urology | DX: C61 Malignant neoplasm of prostate (principal) ==

== ENCOUNTER → 2024-06-23 | Outpatient (CLI) | payer MEDICARE ==
[~2024-06-23] MED LIST changes: +ISOVUE-370 76% 100ML VIAL ONE
== END ==
LOC: M PLAIMG 11:46
PROVIDERS: ATTEND Internal Medicine
DX: R31.0 Gross hematuria (principal); K76.89 Other specified diseases of liver; N32.89 Other specified disorders of bladder; R91.8 Other nonspecific abnormal finding of lung field
CPT/HCPCS: 74178; Q9967

== ENCOUNTER → 2024-07-05 | Outpatient (CLI) | payer MEDICARE ==
[~2024-07-05] MED LIST changes: -ISOVUE-370 76% 100ML VIAL ONE
== END ==
LOC: M PLARAD 07:19
PROVIDERS: ATTEND Internal Medicine
DX: C67.4 Malignant neoplasm of posterior wall of bladder (principal); I88.0 Nonspecific mesenteric lymphadenitis
CPT/HCPCS: 78815; A9552

== ENCOUNTER → 2024-07-08 | Outpatient (REF) | payer MEDICARE | LOC: M SMT 17:09 | PROVIDERS: ATTEND Urology | DX: R31.0 Gross hematuria (principal) ==

== ENCOUNTER → 2024-07-25 | Outpatient (REF) | payer MEDICARE | LOC: M LAB REF 10:27 | PROVIDERS: ATTEND Internal Medicine | DX: R19.7 Diarrhea, unspecified (principal) ==

== ENCOUNTER → 2024-11-10 | Outpatient (CLI) | payer OTHER, MEDICARE | LOC: M PLAIMG 08:53 | PROVIDERS: ATTEND Internal Medicine Pulmonary Disease | DX: J62.0 Pneumoconiosis due to talc dust (principal) ==

== ENCOUNTER → 2025-04-24 | Outpatient (CLI) | payer MEDICARE | LOC: M PLALAB 10:36 | PROVIDERS: ATTEND Urology | DX: C61 Malignant neoplasm of prostate (principal) ==